=== PATIENT | male | born 1960 | race African-American/Black ===

== ENCOUNTER 2020-11-18 08:24 | Outpatient (REF) | payer OTHER, SELFPAY ==
--- NOTE | ~2020-11-18 | XR_ITS ---
EXAMINATION: 1. RADIOGRAPHS RIGHT KNEE 2. RADIOGRAPHS LEFT KNEE 3. STANDING BILATERAL KNEE RADIOGRAPHS CLINICAL INFORMATION: Pain COMPARISON: Knee radiographs February 16, 2017 and May 29, 2014 TECHNIQUE: 3 views of each knee were obtained inclusive of standing AP views. FINDINGS: Right knee: No fracture or dislocation. Tiny suprapatellar joint effusion. Mild to moderate narrowing of the medial joint space height with mild narrowing of the lateral joint space height. Small tricompartmental marginal osteophytes. Left knee: There is severe narrowing of the medial joint space height with mild to moderate narrowing of the lateral joint space height. Tiny suprapatellar joint effusion suspected. XR/XR knee LT 2V IMPRESSION: Moderate to severe degenerative changes of the left knee with mild to moderate degenerative changes of the right knee. Degenerative changes are relatively similar in prominence compared with imaging from 2016 but mild to moderately progressed from 2014 imaging.
--- NOTE | ~2020-11-18 | XR_ITS ---
EXAMINATION: 1. RADIOGRAPHS RIGHT KNEE 2. RADIOGRAPHS LEFT KNEE 3. STANDING BILATERAL KNEE RADIOGRAPHS CLINICAL INFORMATION: Pain COMPARISON: Knee radiographs February 16, 2017 and May 29, 2014 TECHNIQUE: 3 views of each knee were obtained inclusive of standing AP views. FINDINGS: Right knee: No fracture or dislocation. Tiny suprapatellar joint effusion. Mild to moderate narrowing of the medial joint space height with mild narrowing of the lateral joint space height. Small tricompartmental marginal osteophytes. Left knee: There is severe narrowing of the medial joint space height with mild to moderate narrowing of the lateral joint space height. Tiny suprapatellar joint effusion suspected. XR/XR knee standing BI IMPRESSION: Moderate to severe degenerative changes of the left knee with mild to moderate degenerative changes of the right knee. Degenerative changes are relatively similar in prominence compared with imaging from 2016 but mild to moderately progressed from 2014 imaging.
--- NOTE | ~2020-11-18 | XR_ITS ---
EXAMINATION: 1. RADIOGRAPHS RIGHT KNEE 2. RADIOGRAPHS LEFT KNEE 3. STANDING BILATERAL KNEE RADIOGRAPHS CLINICAL INFORMATION: Pain COMPARISON: Knee radiographs February 16, 2017 and May 29, 2014 TECHNIQUE: 3 views of each knee were obtained inclusive of standing AP views. FINDINGS: Right knee: No fracture or dislocation. Tiny suprapatellar joint effusion. Mild to moderate narrowing of the medial joint space height with mild narrowing of the lateral joint space height. Small tricompartmental marginal osteophytes. Left knee: There is severe narrowing of the medial joint space height with mild to moderate narrowing of the lateral joint space height. Tiny suprapatellar joint effusion suspected. XR/XR knee RT 2V IMPRESSION: Moderate to severe degenerative changes of the left knee with mild to moderate degenerative changes of the right knee. Degenerative changes are relatively similar in prominence compared with imaging from 2017 but mild to moderately progressed from 2014 imaging.
== END 2020-11-18 08:25 | disposition home or self-care (01) ==
LOC: HO.HOSX 08:24
PROVIDERS: Visit Provider Physician Assistant
DX: M17.0 Bilateral primary osteoarthritis of knee (principal)
CPT/HCPCS: 20610; 73560; 73565; J1020

== ENCOUNTER 2020-11-27 08:49 | Outpatient (REF) | payer OTHER, SELFPAY ==
--- NOTE | ~2020-11-27 | CT_ITS ---
EXAMINATION: CT SINUS WITHOUT CONTRAST CLINICAL INFORMATION: Deviated septum. COMPARISON: Plain film paranasal sinuses of 09/22/2010 TECHNIQUE: CT paranasal sinuses without contrast. This CT examination was performed using dose optimization techniques as appropriate, variously including the following: *Automated exposure control *Adjustment of mA and/or kV according to patient size (this includes techniques or standardized protocols for targeted exams where dose is matched to indication/reason for exam; i.e. extremities or head) *Use of iterative reconstruction technique DLP: 150 mGy-cm FINDINGS: FRONTAL SINUSES AND DRAINAGE PATHWAYS: Normal. MAXILLARY SINUSES AND DRAINAGE PATHWAYS: The inferior turbinates are boggy bilaterally. The ostiomeatal complex has some soft tissue thickening with partial obstruction bilaterally, left greater than right. ETHMOID SINUSES: Normal. SPHENOID SINUSES AND DRAINAGE PATHWAYS: There is a dependent mucus retention cyst seen within the sphenoid sinus. No bony destruction or expansion is noted. NASAL CAVITY/NASOPHARYNX: The nasal cavity is clear. There is mild nasal septal deviation/spurring. ADDITIONAL RELEVANT FINDINGS: No periapical disease is seen. The TMJs articulate normally. The orbits and skull base soft tissues are unremarkable. The middle ear cavities and mastoid air cells are clear. Limited evaluation demonstrates no acute intracranial findings. CT/CT sinus wo con IMPRESSION: Sphenoid mucus retention cyst. Calcified nasal septal deviation to the right posteriorly and to the left anteriorly. Soft tissue swelling with partial obstructing of the ostiomeatal complexes bilaterally, left greater than right.
== END 2020-11-27 08:50 | disposition home or self-care (01) ==
LOC: HO.CT 08:49
PROVIDERS: Visit Provider Otolaryngology
DX: J34.2 Deviated nasal septum (principal); J33.8 Other polyp of sinus
CPT/HCPCS: 70486

== ENCOUNTER 2021-12-24 09:59 | Outpatient (REF) | payer OTHER, SELFPAY ==
--- NOTE | ~2021-12-24 | XR_ITS ---
EXAMINATION: XR knee standing BI, XR knee RT 2V CLINICAL INFORMATION: Reason for Exam M25.569 - Pain in unspecified knee COMPARISON: None available at the time of this dictation. TECHNIQUE: Bilateral frontal standing, right lateral and patella sunrise view FINDINGS: BONES: No fracture or dislocation is present. JOINTS: Narrowing of joint spaces and developed osteophytes from the edges of articular surfaces suggest degenerative osteoarthritis. 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
--- NOTE | ~2021-12-24 | XR_ITS ---
EXAMINATION: XR knee standing BI, XR knee RT 2V CLINICAL INFORMATION: Reason for Exam M25.569 - Pain in unspecified knee COMPARISON: None available at the time of this dictation. TECHNIQUE: Bilateral frontal standing, right lateral and patella sunrise view FINDINGS: BONES: No fracture or dislocation is present. JOINTS: Narrowing of joint spaces and developed osteophytes from the edges of articular surfaces suggest degenerative osteoarthritis. SOFT TISSUE: Normal XR/XR knee standing BI IMPRESSION: Early advanced bilateral tricompartment degenerative osteoarthritis.
== END 2021-12-24 10:00 | disposition home or self-care (01) ==
LOC: HO.HOSX 09:59
PROVIDERS: Visit Provider Physician Assistant
DX: M17.0 Bilateral primary osteoarthritis of knee (principal)
CPT/HCPCS: 20610; 73560; 73565; J1040

== ENCOUNTER 2025-01-02 10:44 | Outpatient (REF) | payer OTHER, SELFPAY ==
--- OUTSIDE RECORDS SUMMARY | 2025-01-02 12:13 | XMS_ITS | Encounter Summary ---
Author Organization [facility] Address [address] [place] [address] Care Team Providers Care Rewriter Name Role Phone Neel Lewis MD Primary Care Provider [phone] Reason for Visit * Reason Onset Date Comments special procedure 12/21/2024 Encounter Details Date Type Department Care Team (Late st Contact Info) Description 12/21/2024 Telephone Gastroenterology - [address] [place] [id number] Andrés Kwan MD [address] [place] [address] special procedure Social History Tobacco Use Types Packs/Day Years Used Date Smoking Tobacco: Never Assessed Sex and Gender Information Value Date Recorded Sex Assigned at Not on file Legal Sex Male 8:40 PM EST Gender Identity Not on file Sexual Orientation Not on file documented as of this encounter Progress Notes * Ginna Hernandez MA - 12/21/2024 4:04 PM EDT Medications and allergies updated and given to schedulers. * Opal Beasley - 12/21/2024 2:45 PM EDT Received Records from Dr. Neel Lewis's office for Direct book - Colon PREV. COLON: 01/08/[address] KWAN PERSONAL HX- POLYPS Given to M.A. to update meds and allergies. documented in this encounter Plan of Treatment Not on file documented as of this encounter Visit Diagnoses Not on filedocumented in this encounter Historical Medications * This list may reflect changes made after this encounter. montelukast (SINGULAIR) 10 mg tablet Take 1 tablet (10 mg total) by mouth at bedtime. fexofenadine (DEV) 180 mg tablet Take 1 tablet (180 mg total) by mouth 1 (one) time each day. naproxen sodium (Aleve) 220 mg tablet Take 1 tablet (220 mg total) by mouth 2 (two) times a day with meals. ascorbic acid (VITAMIN C) 1,000 mg tablet Take 1 tablet (1,000 mg total) by mouth 1 (one) time each day. cyanocobalamin (VITAMIN B-12) 1,000 mcg tablet Take 1 tablet (1,000 mcg total) by mouth 1 (one) time each day. cholecalciferol (VITAMIN D-3) 25 mcg (1,000 unit) tablet Take 1 tablet (1,000 Units total) by mouth 1 (one) time each day. tadalafiL (CIALIS) 5 mg tablet Take 1 tablet (5 mg total) by mouth 1 (one) time each day. added in this encounter Care Teams Rewriter Relationship Specialty Start Date End Date Neel Lewis MD [address] [place] [address] PCP - General Internal Medicine 12/21/24 documented as of this encounter
[2025-01-03 14:13] LABS: Immunoglobulin E 263 kU/L (<OR=114)
== END 2025-01-02 10:45 | disposition home or self-care (01) ==
LOC: HO.10HDL 10:44
PROVIDERS: Visit Provider Otolaryngology
DX: J30.89 Other allergic rhinitis (principal)
CPT/HCPCS: 36415; 82785; 86003

== ENCOUNTER 2025-05-24 10:09 | Outpatient (AMB) | payer OTHER, SELFPAY ==
--- OUTSIDE RECORDS SUMMARY | 2025-03-12 11:45 | XMS_ITS ---
Author Organization [facility] Address [address] [place], [place] [id number] Care Team Providers Care Home Health Nurse Name Role Phone JERSON PABLO Primary Care Provider [phone] ALLERGIES Allergen (clinical drug ingredient) Drug/Non Drug Allergy documented on EMR Reaction Allergy Type Onset Date Status Penicillin Unknown Drug Allergy Active REASON FOR REFERRAL Reason Consultation Dr. Ankur Rajput allergy immunology for diffuse hives urticarial rash Diagnosis 1 Pruritic rash (L28.2 ) Referral Organization [facility] Referring Provider First Name JERSON Referring Provider Last Name SAMY Referring Provider Speciality Internal M edicine Referred Provider KIERRA RAJPUT Referred Provider Specialty Allergy/Immu nology General Notes Estelita CASTELLANOS Admin 06/2025 11:01:42 AM > faxed medical referral, note and most recent labs to Kierra Rajput at [phone]>NO REFERRAL REQUIRED Referral Priority Routine REASON FOR VISIT 42/Hives MEDICATIONS Medication SIG (Take, Route, Frequency, Duration) Notes Start Date End Date Status Vitamin B12 1000 MCG 1 tablet Orally Onc e a day for 30 day(s) Active Aleve 220 MG 1 tab(s) orally as needed Active Vitamin C 1000 MG 1 tablet Orally Once a day for 30 day(s) Active Mckenzie Allergy 180 MG 1 tab orally as needed Active ZyrTEC Allergy 10 MG 1 tablet Orally Onc e a day for 30 day(s) Active Vitamin D3 25 MCG (1000 UT) 1 tablet Orally Once a day for 30 day(s) Active Cialis 5 MG 1 tablet as needed O rally Once a day for 30 day(s) Active SOCIAL HISTORY Tobacco Use: Social History Observation Description Date Details (start date - stop date) Never Smoker NA - NA Sex Assigned At : Social History Observation Description Sex Assigned At Unknown Smoking Question Answer Notes Are you a: never smoker PROBLEMS Problem Type ICD Code Onset Dates Problem Status W/U Status Risk SNOMED Code Notes Problem Irregular heart rate (I49.9) Active confirmed [id number] VITAL SIGNS Height 73 in 03/12/2025 Weight 290 lbs 03/12/2025 Blood pressure systolic 132 mm Hg 03/12/20 25 Blood pressure diastolic 75 mm Hg 025 BMI 38.26 kg/m2 03/12/2025 Encounters Encounter Location Date Provider Diagnosis [facility] [address] [place] [address] 03/12/2025 JERSON PABLO Irregular heart rate I49.9 and Pruritic rash L28.2 ASSESSMENTS Encounter Date Diagnosis Assessment Notes Treatment Notes Treatment Clinical Notes Section Notes 03/12/2025 Irregular heart rate (ICD-10 - I49.9) Symptoms vital signs stable check EKG clear if this is a sinus rhythm with PACs or atrial arrhythmia will set up a 24-hour Holter check all labs 03/12/2025 Pruritic rash (ICD-10 - L28.2) Etiology unclear no insect or tick bites. No sign of infection. No new medications or travel. Diffuse nature although decreasing will try to treat with a tapering dose of prednisone 40 mg x 2 days 30 x 2 days 20 x 2 days 10 x 2 days. Check CBC with a differential IgE electrolytes LFTs will put a consultation in with allergy and immunology PLAN OF TREATMENT Treatment Notes Assessment Notes Irregular heart rate Symptoms vital sign s stable check EKG clear if this is a sinus rhythm with PACs or atrial arrhythmia will set up a 24-hour Holter check all labs Pruritic rash Etiology unclear no insect or tick bites. No sign of infection. No new medications or travel. Diffuse nature although decreasing will try to treat with a tapering dose of prednisone 40 mg x 2 days 30 x 2 days 20 x 2 days 10 x 2 days. Check CBC with a differential IgE electrolytes LFTs will put a consultation in with allergy and immunology Referrals Referral Date Details Consultation Dr. Ankur Rajput allergy immunology for diffuse hives urticarial rash, KIERRA RAJPUT Next Appt Details Follow Up: Labs today set up 24-hour Holter monitor consultation Dr. Rajput allergy immunology, Reason: Provider Name:JERSON Bailey NANCY SANON, 12/10/2025 10:00:00 AM, [address] [place] [address], [phone], Progress Notes * Examination Category Sub-Category Detail Notes Category Not es General Examination HEENT: Conjunctiva pink anicteric mucous membranes moist oropharynx clear TMs clear sinuses clear Neck: Supple carotids 2+ n o bruits lymphadenopathy Heart: Slightly irregular n o murmurs rubs or gallops Lungs: clear to auscultatio n Abdomen: soft, non tender/non distended, no rebound tenderness, no guarding or rigidity, no masses palpated, no hepatosplenomegaly General Appearance Pleasant black male appearing stated age no apparent . pleasan. well-groome. conversiv Skin: Diffuse maculopapula r rash head back arms legs patchy and confluent no vesicles no bullae slightly raised lesions of varying sizes and shapes Consultation Request Notes Referral Date Referring Provider Referred Provider Not es 03/12/2025 JERSON PABLO JACKIE Consultat ion Dr. Kierra Rajput allergy immunology for diffuse hives urticarial rash
--- OUTSIDE RECORDS SUMMARY | 2025-03-12 12:23 | XMS_ITS ---
Author Organization [facility] Address [address] [place], [place] [id number] Care Team Providers Care Supervisor Electronic Testing Name Role Phone JERSON PABLO Primary Care Provider [phone] REASON FOR VISIT prednisone MEDICATIONS Medication SIG (Take, Route, Fr equency, Duration) Notes Start Date End Date Status predniSONE 10 MG 1 tablet Orally 4 pi lls x 2 days, 3 pills x 2 days, 2 pills x 2 days, 1 pill x 2 days for 8 day(s) 03/12/2025 Activ e Encounters Encounter Location Date Provider Diagnosis [facility] [address] [place] [address] 03/12/2025 JERSON PABLO PLAN OF TREATMENT Medication Medication Name Sig Start Date Stop Date Notes predniSONE 10 MG 1 tablet Orally 4 pi lls x 2 days, 3 pills x 2 days, 2 pills x 2 days, 1 pill x 2 days for 8 day(s) 03/12/2025 Next Appt Details Provider Name:JERSON SANON, 12/10/2025 10:00:00 AM, [address] [place], [address],
--- OUTSIDE RECORDS SUMMARY | 2025-03-13 04:19 | XMS_ITS ---
Author Organization [facility] Address [address] [place], [place] [id number] Care Team Providers Care Bobbin Presser Name Role Phone JERSON PABLO Primary Care Provider [phone] REASON FOR VISIT kidney function Encounters Encounter Location Date Provider Diagnosis [address] [address] 03/13/2025 JERSON PABLO Elevated serum creatinine R79.89 ASSESSMENTS Encounter Date Diagnosis Assessment Notes Treatment Notes Treatment Clinical Notes Section Notes 03/13/2025 Elevated serum creatinine (ICD-10 - R79.89) PLAN OF TREATMENT Future Test Test Name Order Date Urinalysis, Complete [id number] 03/16/2025 Next Appt Details Provider Name:JERSON SANON, 12/10/2025 10:00:00 AM, [address] [place], [address],
--- OUTSIDE RECORDS SUMMARY | 2025-03-13 08:22 | XMS_ITS ---
Author Organization [facility] Address [address] [place], [place] [id number] Care Team Providers Care Time Analysis Clerk Name Role Phone JERSON PABLO Primary Care Provider REASON FOR VISIT (PHONE) Encounters Encounter Location Date Provider Diagnosis [address] [address] 03/13/2025 JERSON PABLO Elevated LFTs R79.89 ASSESSMENTS Encounter Date Diagnosis Assessment Notes Treatment Notes Treatment Clinical Notes Section Notes 03/13/2025 Elevated LFTs (ICD-10 - R79.89) PLAN OF TREATMENT Next Appt Details Provider Name:JERSON SANON, 12/10/2025 10:00:00 AM, [address] [place], [address],
--- OUTSIDE RECORDS SUMMARY | 2025-03-15 04:03 | XMS_ITS ---
Author Organization [facility] Address [address] [place], [place] [phone] Care Team Providers Care Cake Icer And Packer Name Role Phone JERSON PABLO Primary Care Provider REASON FOR VISIT kidney and liver functions Encounters Encounter Location Date Provider Diagnosis [facility] [address] [place] [address] 03/15/2025 JERSON PABLO PLAN OF TREATMENT Next Appt Details Provider Name:JERSON SANON, 12/10/2025 10:00:00 AM, [address] [place], [address],
--- OUTSIDE RECORDS SUMMARY | 2025-03-26 11:38 | XMS_ITS ---
Author Organization [facility] Address [address] [place], [place] [phone] Care Team Providers Care Triple Valve Tester Name Role Phone JERSON PABLO Primary Care Provider REASON FOR VISIT holter monitor Encounters Encounter Location Date Provider Diagnosis [facility] [address] [place] [address] 03/26/2025 JERSON PABLO PLAN OF TREATMENT Next Appt Details Provider Name:JERSON SANON, 12/10/2025 10:00:00 AM, [address] [place], [address],
--- OUTSIDE RECORDS SUMMARY | 2025-04-02 05:22 | XMS_ITS ---
Author Organization [facility] Address [address] [place], [place] [id number] Care Team Providers Care Industrial Sewer Name Role Phone JERSON PABLO Primary Care Provider REASON FOR VISIT us Encounters Encounter Location Date Provider Diagnosis [facility] [address] [place] [address] 04/02/2025 JERSON PABLO PLAN OF TREATMENT Next Appt Details Provider Name:JERSON SANON, 12/10/2025 10:00:00 AM, [address] [place], [address],
--- OUTSIDE RECORDS SUMMARY | 2025-04-02 05:38 | XMS_ITS ---
Author Organization [facility] Address [address] [place], [place] [phone] Care Team Providers Care Hatch Tender Name Role Phone JERSON PABLO Primary Care Provider REASON FOR VISIT weight loss Encounters Encounter Location Date Provider Diagnosis [facility] [address] [place] [address] 04/02/2025 JERSON PABLO PLAN OF TREATMENT Next Appt Details Provider Name:JEROSN SANON, 12/10/2025 10:00:00 AM, [address] [place], [address],
--- OUTSIDE RECORDS SUMMARY | 2025-05-10 05:38 | XMS_ITS ---
Author Organization [facility] Address [address] [place], [place] [phone] Care Team Providers Care Arbor End Mainspring Former Name Role Phone JERSON PABLO Primary Care Provider RESULTS Component Value Reference Range Notes XR Knee Right 3 views Reviewed date:05/14/2025 08:33:41 AM Interpretation: Performing Lab: Notes/Report: XR Elbow Right 2-3 views Reviewed date:05/14/2025 08:34:42 AM Interpretation: Performing Lab: Notes/Report: REASON FOR VISIT R. elbow, R. knee xrays Encounters Encounter Location Date Provider Diagnosis [address] [address] 05/10/2025 JERSON PABLO Right elbow pain M25.521 and Pain, joint, knee, right M25.561 ASSESSMENTS Encounter Date Diagnosis Assessment Notes Treatment Notes Treatment Clinical Notes Section Notes 05/10/2025 Right elbow pain (ICD-10 - M25.521) 05/10/2025 Pain, joint, knee, right (ICD-10 - M25.561) PLAN OF TREATMENT Next Appt Details Provider Name:JERSON SANON, 12/10/2025 10:00:00 AM, [address] [place] [address], [address],
--- OUTSIDE RECORDS SUMMARY | 2025-05-14 04:34 | XMS_ITS ---
Author Organization [facility] Address [address] [place], [place] [phone] Care Team Providers Care Manufacturing Advisor Name Role Phone JERSON PABLO Primary Care Provider REASON FOR VISIT (2)xray of knee Encounters Encounter Location Date Provider Diagnosis [facility] [address] [place] [address] 05/14/2025 JERSON PABLO PLAN OF TREATMENT Next Appt Details Provider Name:JERSON SANON, 12/10/2025 10:00:00 AM, [address] [place], [address],
--- OUTSIDE RECORDS SUMMARY | 2025-05-20 23:59 | XMS_ITS | Continuity of Care Document ---
Author Organization [facility] Address [address] [facility], [address] [place] [address]- Care Team Providers Care Instructor Industrial Design Name Role Phone Neel Lewis MD Primary Care Physician Encounter 05/13/25 - 05/20/25 [facility] [address] [facility], [address] [place] [address]- Attending Physician: Neel Lewis MD Admitting Physician: Neel Lewis MD Referring Physician: Neel Lewis MD Encounter Type: OutPatient One Time Allergies, Adverse Reactions, Alerts Substance Criticality Severity Reaction Reaction Severity Status penicillin Active Medications clindamycin 300 mg oral capsule 1 capsule = 300 mg, By Mouth, Every 6 hours, # 28 capsule, 0 Refills, Maintenance, 12/17/16 7:50:54 PM EDT, Capsule Start Date: 12/17/16 Stop Date: 12/24/16 Status: Ordered Medication Dispense Status: Completed Quantity: 28.0 Unit: capsule Total Allowed Fills: 1 Fills Dispensed: 0 Results Radiology Reports * Exam Date Time Procedure Performing Provider Status 05/13/25 10:45 AM Elbow Min 3 Views Right Auth (Verified) Notes: (Elbow Min 3 Views Right) Reason For Exam: pain RESULT: Elbow Min 3 Views Right Elbow Min 3 Views Right, 3 views Reason: pain COMPARISON: None. FINDINGS: No fracture or dislocation. No lytic or blastic lesions. There are several ovoid ossific and calcific densities projecting both anteriorly and posteriorly near the level of the joint space seen best on lateral projection, and other smaller density in the soft tissues adjacent to the olecranon. There is mild bony spurring about the joint space medially and posteriorly from the olecranon. No joint effusion. IMPRESSION: No acute findings. Mild degenerative changes and foci of calcific bursitis/tendinitis. Cannot exclude an underlying osteochondral fragment. WSN: [id number] Ordering Physician: Neel Lewis Dictated By: Vasu Miguel MD Dictated Date/Time: 05/14/25 7:07 am Reviewed By: Vasu Miguel MD Signed By: Vasu Miguel MD Signed Date/Time: 05/14/25 7:07 am Transcribed By: STEFANIA Transcribed Date/Time: 05/14/25 7:03 am * Exam Date Time Procedure Performing Provider Status 05/13/25 10:45 AM Knee 3 Views Right Auth (Verified) Notes: (Knee 3 Views Right) Reason For Exam: pain RESULT: Knee 3 Views Right Knee 3 Views Right Reason: pain COMPARISON: None. FINDINGS: There is no evidence of acute or healing fracture, dislocation or bone lesion. Moderate tricompartmental degenerative osteoarthritis but no evidence of osteochondral defect or intra-articular loose body. No evidence of joint effusion. IMPRESSION: Moderate tricompartmental degenerative osteoarthritis but no acute abnormality. WSN: [id number] Ordering Physician: Neel Lewis Dictated By: Vasu Miguel MD Dictated Date/Time: 05/14/25 6:44 am Reviewed By: Vasu Miguel MD Signed By: Vasu Miguel MD Signed Date/Time: 05/14/25 6:44 am Transcribed By: STEFANIA Transcribed Date/Time: 05/14/25 6:43 am Social History Social History Type Response Smoking Status Never smoker; Tobacc o user in household: No entered on: 05/15/18 Sex Sex Representation Male (finding) Patient Care team information Care Team Personnel Name: Neel Lewis MD Position: [facility] Outreach Member Role: PCP Address: [address] [place] [address] Telecom: Care Team Related Persons Name: SUELLEN ACEVEDO Insurance Providers Guarantor name: DAVID ACEVEDO [employer] Plan Information #: 1 Payer: [facility] FF NON BHP HMO P Payer Identifier: NA Member Number: [id number] Group Number: [id number] Subscriber Identifier: [id number] Relationship to Subscriber: self Coverage Type: Other Private Insurance Coverage Verification Date: NA Telecom: NA Address: NA
--- NOTE | 2025-05-24 10:17 | A.OFFVIS_ITS ---
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 Patient reports his last injection gave him relief and would like to repeat. 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 Martinez presents to the office today for chronic bilateral knee pain due to osteoarthritis. Last cortisone injection was 12/24/2021 which gave him good relief. He is looking to repeat injections while in the office today. 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 Normal to inspection. No ecchymosis, erythema, or joint effusion. No tenderness to palpation to the medial or lateral joint lines. Full knee extension and flexion. Negative Gladis's. Negative anterior draw. NVI. Office Procedures AMB Joint Injection/Aspiration Joint Injection/Aspiration Primary Site: right knee Secondary Site: left knee Prep: site was prepped using aseptic technique, ethochloride spray was applied and injection warnings given Injected: 40 mg of, with 3 mL of, 1% plain lidocaine, 0.25% bupivacaine, in the joint and decadron Approach Used: anterolateral Procedure: The patient tolerated the procedure well, but had some pain with the injection and there was some relief with the local anesthesia Coding 97664 - Bilateral Large Joint Procedure code (CPT) selection complete Assessment & Plan Assessment & Plan (1) Osteoarthritis of knees, bilateral: Code(s): M17.0 - Bilateral primary osteoarthritis of knee Category: Medical Plan The patient was offered a cortisone injection in bilateral knees. The patient was explained the risks, benefits, and alternatives to receiving this injection. After receiving consent for the injection, the patient had the procedure done while in the office today. The patient tolerated the procedure well with no complications. Follow-up will be PRN, or sooner if needed Coding Level of Care Code Est Pt Level 3 (31883) Diagnoses Osteoarthritis of knees, bilateral M17.0 CPT Codes Coding - 55164 - Bilateral Large Joint: 52668 - Bilateral Large Joint ([id number])
--- OUTSIDE RECORDS SUMMARY | 2025-05-24 11:26 | XMS_ITS | Continuity of Care Document ---
Author Organization [facility] [address] [place] [address] Phone [phone] Care Team Providers Care Photovoltaic Panel Installer Name Role Phone Neel Lewis M.D. Care Team Information Recei silvestre [phone] Problems Active Problems Provider Date Hypogonadism Ankit Batres M.D. Onset: 0 02/02/2024 Erectile dysfunction Ankit Batres M.D. Ons et: 02/02/2024 Osteoarthritis Ankit Batres M.D. Onset: 0 02/02/2024 Social History Type Date Description Comments Sex Male Sex Unknown Tobacco Use Start: Unknown Never Smoked Cigarettes ETOH Use Occasionally consumes alcoho l Allergies and adverse reactions Active Allergies Criticality Reaction Severity Comments Date Penicillin Unable to assess criticality 03/01/2024 Medications Active Medications SIG Qnty Indications Ordering Provider Date Econazole Nitrate1% Cream Apply Twice Daily To Rash In Groin X 4 Weeks. Andressa Patel MD [id number] Tablets Take 1 Tablet By Mouth Every Day Todd Plunkett MD Montelukast [id number] Tablets Take 1 Tablet By Mouth Daily Neel Lewis M.D. Dptef133vb Tablets 1 by mouth every day Unknown Fluticasone Propionate Nasal [place] Allergy Relief 24- Hxyi00hqe/Act Suspension 1 spray each nostril daily Unknown Vital Signs Date Vital Result Comment 01/14/2025 8:40am BP Systolic 120 mmHg BP Diastolic 80 mmHg Heart Rate 72 /min Height 73 inches 6'1 Weight 293.00 lb BMI (Body Mass Index) 38.7 kg/m2 Results Test Acquired Date Facility Test Result H/L Range N ote Testosterone 03/09/2024 [facility] Testosterone 331 ng/dL High 3-67 Luteinizing Hormone(LH) 03/09/2024 [facility] Luteinizing Hormone(LH) 4.9 mIU/mL Low 7.7-58.5 1 FSH, Serum 03/09/2024 [facility] FSH 4.4 mIU/mL Low 25.8-134. 8 2 Prolactin 03/09/2024 [facility] Prolactin 10.6 ng/mL 3.6-25.2 1 Adult Female Range Follicular phase 2.4 - 12.6 Ovulation phase 14.0 - 95.6 Luteal phase 1.0 - 11.4 Postmenopausal 7.7 - 58.5 2 Adult Female Range Follicular phase 3.5 - 12.5 Ovulation phase 4.7 - 21.5 Luteal phase 1.7 - 7.7 Postmenopausal 25.8 - 134.8 Procedures Date Code Description Status 02/02/2024 NSHOWOFF No Show Office Visit Complet ed Medical Devices Description No Information Available Encounters Type Date Location Provider Dx Diagnosis Office Visit 01/14/2025 8:30a Main Office Ankit Batres M.D. 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 Plan of Treatment No Information Available Functional Status Description No Information Available Mental Status Description No Information Available Referrals Description No Information Available
--- OUTSIDE RECORDS SUMMARY | 2025-05-24 11:26 | XMS_ITS | Patient Health Record ---
Author Organization [facility] Address [address], [place] [id number] Care Team Providers Care Customer Contact Sales Associate Name Role Phone JERSON PABLO Primary Care Provider [phone] ALLERGIES Allergen (clinical drug ingredient) Drug/Non Drug Allergy documented on EMR Reaction Allergy Type Onset Date Status Penicillin Unknown Drug Allergy Active REASON FOR REFERRAL Reason Referral to [facility] for colonoscopy patient due he will call and schedule Diagnosis 1 Colon cancer screeni lizbet (Z12.11) Referral Organization [facility] Referring Provider First Name JERSON Referring Provider Last Name SAMY Referring Provider Speciality Internal M edicine Referred Provider ANDRÉS NOLAND Referred Provider Specialty Gastroentero logy General Notes Leda CASETLLANOS Automobile Body Worker 12/19/2024 04:11:39 PM > per TE today , Pt called for referral to Dr. Andrés Rader [facility] for colonoscopy:, fax [phone]., Leda CASTELLANOS Automobile Body Worker 12/19/2024 04:14:08 PM > Info faxed, Estelita CASTELLANOS Admin 04/05/2025 11:05:48 AM > NO REFERRAL REQUIRED>FAXED TO [phone] Referral Priority Routine Referral Appointment Date 03/08/[address] Ankur Rajput allergy immunology for diffuse hives urticarial rash Diagnosis 1 Pruritic rash (L28.2 ) Referral Organization [facility] Referring Provider First Name JERSON Referring Provider Last Name SAMY Referring Provider Speciality Internal M edicine Referred Provider KIERRA RAJPUT Referred Provider Specialty Allergy/Immu nology General Notes Estelita CASTELLANOS P Admin 06/2025 11:01:42 AM > faxed medical referral, note and most recent labs to Kierra Rajput at [phone]>NO REFERRAL REQUIRED Referral Priority Routine MEDICATIONS Medication SIG (Take, Route, Frequency, Duration) Notes Start Date End Date Status ZyrTEC Allergy 10 MG 1 tablet Orally Onc e a day for 30 day(s) Active Vitamin D3 25 MCG (1000 UT) 1 tablet Orally Once a day for 30 day(s) Active predniSONE 10 MG 1 tablet Orally 4 pi lls x 2 days, 3 pills x 2 days, 2 pills x 2 days, 1 pill x 2 days for 8 day(s) 03/12/2025 Active Cialis 5 MG 1 tablet as needed O rally Once a day for 30 day(s) Active Vitamin B12 1000 MCG 1 tablet Orally Onc e a day for 30 day(s) Active Aleve 220 MG 1 tab(s) orally as needed Active Vitamin C 1000 MG 1 tablet Orally Once a day for 30 day(s) Active Mckenzie Allergy 180 MG 1 tab orally as needed Active SOCIAL HISTORY Tobacco Use: Social History Observation Description Date Details (start date - stop date) Never Smoker NA - NA Sex Assigned At : Social History Observation Description Sex Assigned At Unknown Smoking Question Answer Notes Are you a: never smoker PROBLEMS Problem Type ICD Code Onset Dates Problem Status W/U Status Risk SNOMED Code Notes Problem Other and unspecified nonspecific immunological findings (795.79) Active confirmed 175824204 Problem osteoarthritis (715.90) Active confirmed 476126311 Problem Disorder of lipoprotein metabolism, unspecified (E78.9) Active confirmed Disorder of lipoprotein storage and metabolism (disorder) (671666358) Problem Irregular heart rate (I49.9) Active confirmed 250703241 Problem Hypogonadism in male (E29.1) Active confirmed 46529268 Problem Primary erectile dysfunction (N52.9) Active confirmed 463971878 VITAL SIGNS Blood pressure diastolic 75 mm Hg 03/12/2025 Height 73 in 03/12/2025 Blood pressure systolic 132 mm Hg 03/12/2025 Weight 290 lbs 03/12/2025 BMI 38.26 kg/m2 03/12/2025 Encounters Encounter Location Date Provider Diagnosis [facility] [address] [place] [id number] 07/30/2024 JERSON PABLO [facility] [place] [id number] 12/01/2024 JERSON PABLO [place] [id number] 12/06/2024 JERSON PABLO Disorder of lipoprotein metabolism, unspecified E78.9 ; Allergy, unspecified, initial encounter T78.40XA ; Sinus bradycardia R00.1 ; Primary erectile dysfunction N52.9 ; Hypogonadism in male E29.1 ; Nocturia R35.1 ; Colon cancer screening Z12.11 and Dorsalgia of lumbar region M54.50 [place] [id number] 12/10/2024 JERSON PABLO [place] [id number] 12/11/2024 JERSON PABLO [place] [id number] 12/11/2024 JERSON PABLO [place] [id number] 12/13/2024 JERSON PABLO [address] 12/14/2024 JERSON PABLO Disorder of lipoprotein metabolism, unspecified E78.9 [facility] [address] [place], [place] [phone] 12/19/2024 JERSON PABLO [place] [id number] 12/24/2024 JERSON PABLO UTI (urinary tract infection), uncomplicated N39.0 [facility] [address] [place], [place] [phone] 03/12/2025 JERSON PABLO [place] [id number] 03/12/2025 JERSON PABLO Irregular heart rate I49.9 and Pruritic rash L28.2 [facility] [address] [place], [place] [phone] 03/12/2025 JERSON PABLO [place] [id number] 03/13/2025 JERSON PABLO Elevated serum creatinine R79.89 [facility] [address] [place], [place] [id number] 03/13/2025 JERSON PABLO Elevated LFTs R79.89 [facility] [address] [place] [phone] 03/15/2025 JERSON PABLO [facility] [address] [place] [phone] 03/26/2025 JERSON PABLO [facility] [address] [place] [phone] 04/02/2025 JERSON PABLO [address] [phone] 04/02/2025 JERSON PABLO [address] [address] 05/10/2025 JERSON PABLO Right elbow pain M25.521 and Pain, joint, knee, right M25.[address] [address] 05/14/2025 JERSON PABLO ASSESSMENTS Encounter Date Diagnosis Assessment Notes Treatment Notes Treatment Clinical Notes Section Notes 05/10/2025 Right elbow pain (ICD-10 - M25.521) 05/10/2025 Pain, joint, knee, right (ICD-10 - M25.561) 03/13/2025 Elevated LFTs (ICD-10 - R79.89) 03/13/2025 Elevated serum creatinine (ICD-10 - R79.89) 03/12/2025 Pruritic rash (ICD-10 - L28.2) Etiology [...] a consultation in with allergy and immunology 03/12/2025 Irregular heart rate (ICD-10 - I49.9) Symptoms vital signs stable check EKG clear if this is a sinus rhythm with PACs or atrial arrhythmia will set up a 24-hour Holter check all labs 12/24/2024 UTI (urinary tract infection), uncomplicated (ICD-10 - N39.0) 12/14/2024 Disorder of lipoprotein metabolism, unspecified (ICD-10 - E78.9) 12/06/2024 Allergy, unspecified, initial encounter (ICD-10 - T78.40XA) Stable by physical exam. Follow-up allergy and ENT in the near future continue present medication for the time being follow-up 12/06/2024 Disorder of lipoprotein metabolism, unspecified (ICD-10 - E78.9) Check lipid profile. Total cholesterol goal less than 200 LDL less than 100 optimally low-fat diet exercise etc. 12/06/2024 Sinus bradycardia (ICD-10 - R00.1) Stable check EKG sinus rhythm no change 12/06/2024 Primary erectile dysfunction (ICD-10 - N52.9) Check testosterone TSH blood sugar 12/06/2024 Hypogonadism in male (ICD-10 - E29.1) 12/06/2024 Nocturia (ICD-10 - R35.1) Family history of prostate cancer 1 brother. No significant symptoms at the present time we will check a UA and PSA 12/06/2024 Colon cancer screening (ICD-10 - Z12.11) Called [facility] patient is due for colonoscopy this summer patient informed he will call to set up an appointment and I put a referral in 12/06/2024 Dorsalgia of lumbar region (ICD-10 - M54.50) Neurologically intact recommend physical therapy check x-ray lumbar spine follow-up in 4 to 6 weeks if no improvement PLAN OF TREATMENT Future Test Test Name Order Date Lipid Panel-[id number] 12/06/2024 Urinalysis, Complete w/[id number] BMP8+[id number] 03/16/2025 Next Appt Details Provider Name:JERSON SANON, 12/10/2025 10:00:00 AM, [address] [place], [address], Insurance Providers Payer Name Payer Address Payer Phone Subscriber Number Group Number Insured Name Patient Relationship to Insured Coverage Start Date Coverage End Date [facility] [address] [place] [id number] DAVID ACEVEDO Self - patient is the insured MEDICAL (GENERAL) HISTORY Medical History History ICD Code allergies Arthritis heart murmur Dermatology March [address]23 [address]. Amanda whitten ea pedis Urology January 2023 BPH and ED Obstructive sleep apnea on CPAP consulta tion February 2023 Holter monitor November 2023 normal sinus rhy thm Cervical neck x-ray November 2023 degenerativ e arthritis [facility] urology consult 2023 Surgical History Surgery Date(Month/Year) knee surgery 1990 umbilical hernia repair 2000 knee surgery 1979
--- OUTSIDE RECORDS SUMMARY | 2025-05-24 11:26 | XMS_ITS | Clinical Summary ---
Author Organization [facility] Address [address] [place] [address] Care Team Providers Care Hot Metal Mixer Operator Name Role Phone Neel Lewis MD Primary Care Provider [phone] Allergies Active Allergy Reactions Criticality Noted Date Comments Penicillins Hives 05/23/2017 Medications Medication Sig Dispensed Refills Start Date End Date Status metroNIDAZOLE (FLAGYL) 500 MG tablet Take 500 mg by mouth 3 (three) times a day. 0 Active doxycycline (VIBRA-TABS) 100 MG tablet Take 100 mg by mouth 2 (two) times a day. 0 Active omeprazole (PRILOSEC) 20 MG capsule Take 20 mg by mouth daily. 0 Active Active Problems No known active problems Family History Medical History Relation Name Comments Thyroid disease Brother ALS Father Deep vein thrombosis Father Heart disease Mother Multiple sclerosis Sister 1 Thyroid disease Sister 2 Relation Name Status Comments Brother Father Mother Sister 1 Sister 2 Social History Tobacco Use Types Packs/Day Years Used Date Smoking Tobacco: Never Smokeless Tobacco: Never Alcohol Use Standard Drinks/Week Comments Yes 0 (1 standard drink = 0.6 oz pur e alcohol) occasional Sex and Gender Information Value Date Recorded Sex Assigned at Not on file Gender Identity Not on file Sexual Orientation Not on file Last Filed Vital Signs Vital Sign Reading Time Taken Comments Blood Pressure 140/91 06/13/2017 11:02 AM EST Pulse 98 06/13/2017 11:02 AM EST Temperature - - Respiratory Rate - - Oxygen Saturation - - Inhaled Oxygen Concentration - - Weight 128.5 kg (283 lb 3.2 oz) 017 11:02 AM EST Height 185.4 cm (6' 1 ) 06/13/2017 11:0 2 AM EST Body Mass Index 37.36 06/13/2017 11:02 AM EST Plan of Treatment Health Maintenance Due Date Last Done Comments Hepatitis C Screening 1960 COVID-19 Vaccine (#1) 04/18/1961 Depression Screening 1972 Preventative Health Evaluation 1978 DTap / Tdap / Td (1 - Tdap) 10/17/1979 Colon Cancer Screening (Colonoscopy) 2005 Shingrix-Zoster Vaccine (1 of 2) 2010 Influenza Vaccine (#1) 2025 Pneumococcal Vaccine (1 of 1 - PCV) 2025 RSV Adult > 60+ Yrs or Pregn ant (1 - 1-dose 75+ series) 10/17/2035 Hepatitis B Vaccines Aged Out No long er eligible based on patient's age to complete this topic Pneumococcal Vaccine Aged Out No long er eligible based on patient's age to complete this topic RSV Ped < 20 months Aged Out No longe r eligible based on patient's age to complete this topic Insurance Payer Benefit Plan / Group Subscriber ID Effective Dates Phone Address [facility] [id number] 2019-Present [address] [address] [facility] [place] Teams Hot Metal Mixer Operator Relationship Specialty Start Date End Date Neel Lewis MD PCP - General Internal Medicine 05/23/17
== END 2025-05-24 10:32 | disposition home or self-care (01) ==
LOC: HO.HOS 10:09
PROVIDERS: PCP Internal Medicine; Visit Provider Physician Assistant
DX: M17.0 Bilateral primary osteoarthritis of knee (principal)
CPT/HCPCS: 20610; 99203

== ENCOUNTER → 2025-05-24 10:09 | Outpatient (BNVA) | payer OTHER, SELFPAY | PROVIDERS: PCP Internal Medicine; Visit Provider Physician Assistant | DX: M17.0 Bilateral primary osteoarthritis of knee (principal) | CPT/HCPCS: 20610; J0665; J1100; J2003 ==